=== PATIENT | female | born 1995 | race Caucasian/White ===

== ENCOUNTER 2025-06-29 07:31 | Emergency (ER) | payer SELFPAY ==
[2025-06-29 07:35] VITALS: BP 154/98
[2025-06-29] MEDS: PERCOCET 5/325 1 TABLET PO (08:09)
[2025-06-29 08:30] LABS: HCG, Urine Qualitative Screen Negative
--- NOTE | 2025-06-29 10:35 | ED.GENMED ---
History of Present Illness
General
Chief Complaint: Fall
Time Seen by Provider: 06/29/25 08:00
History of Present Illness
History of Present Illness:
Lela is a 30-year-old female who reports falling yesterday and bruising her left wrist and then falling again today while taking her dog out for a walk and sliding down 6 steps. Currently denies any pain in her left wrist but reports extreme pain
in her 'tailbone'. Denies any head strike or loss of consciousness. No other areas of pain. No external signs of trauma.
Past History
Past History
ED Past Medical History: Other (Prolonged QT)
ED Past Surgical History: None
Social History
Tobacco: Smoker
Drug: Marijuana
Personal: Single
Phy Exam
General Physical Exam
General Presentation: well appearing and no apparent distress
General Skin: warm and dry
General Habitus: normal
General Mental: alert
General Hydration: appears well hydrated
ENT Exam
ENT Exam: EOMI, pharynx normal, neck supple and normocephalic
Eye Exam
Eye Exam: PERRL, cornea clear and conjunctiva normal
Cardiovascular Exam
Cardiovascular Exam: regular rate/rhythm, no edema, no murmur and normal peripheral pulses
Pulmonary Exam
Pulmonary Exam: lungs clear, no respiratory distress, no rales, no crackles, no rhonchi, no stridor, no wheezing and no cough
Gastrointestinal Exam
Gastrointestinal Exam: normal bowel sounds, non tender, soft, no organomegaly, no pulsatile mass and non distended
Neurological Exam
Neurological Exam: alert, oriented x3, no motor deficits and speech normal
Musculoskeletal Exam
Musculoskeletal Exam: full ROM, back pain (Sacral) and no edema
Skin Exam
Skin Exam: normal color, warm/dry, no rash and no petechia
Psychiatric Exam
Psychiatric Exam: normal mood/affect
Course
Orders/Labs/Results
Orders:
Orders
06/29/25 08:05
CT Pelvis W/o Iv Contrast Urgent
Comment:
Reason For Exam: sacral pain after a fall
Oxycodone/Acetaminophen [Percocet 5/325] 1 tablet PO NOW STA
06/29/25 08:13
Test Result ONCE
06/29/25 08:17
HCG, Urine Qualitative Screen Urgent
Date Specimen was Collected: 06/29/25
Time Specimen was Collected: 08:13
Vital Signs
Initial and Last Documented VS:
Initial Vital Signs
Temp Pulse Resp BP Pulse Ox
36.3 C 87 22 154/98 100
06/29/25 07:35 06/29/25 07:35 06/29/25 07:35 06/29/25 07:35 06/29/25 07:35
Last Documented Vital Signs
Temp Pulse Resp BP Pulse Ox
36.3 C 87 16 154/98 100
06/29/25 07:35 06/29/25 07:35 06/29/25 08:00 06/29/25 07:35 06/29/25 07:35
MDM/Problems Addressed
Differential Diagnosis Includes:
CT pelvis obtained to rule out any injury to her sacrum or coccyx. This was negative for acute traumatic injury. Pain is likely associated with soft tissue injury. Discussed supportive measures of ice rest and over the counter medications
including Tylenol and Motrin. Denies any bladder or bowel issues. Return precautions discussed which include any worsening of her back pain or spread, bladder or bowel dysfunction, paresthesias, or any other concerning symptoms. She was given a
dose of Percocet in the ER with improvement in her pain.
*Pulse Oximetry
SaO2: 100
Oxygen Mode of Delivery: Room air
Patient hypoxic: no
*Critical Care Note
Total Time (30-74mins, 75-104mins- exclusive of procedures): Not Applicable
ED Attending Note
-
Portions of this chart may have been created with voice recognition software.� Occasional wrong word or��sound alike� substitutions may have occurred due to the inherent limitations of voice recognition software.
Discharge Plan
Departure
Patient Disposition: Home (Routine Discharge)
Date of Disposition: 06/29/25
Time of Disposition: 10:07
Patient with high blood pressure during this ER visit?: No
Discharge Problem:
Fall down stairs, Sacral back pain
Instructions: Low back pain - ED (DC)
Prescriptions:
No Action
pantoprazole [Protonix] 40 mg tablet,delayed release (DR/EC)
40 mg PO DAILY 14 Days Qty: 14 0RF
ondansetron 4 mg tablet,disintegrating
4 mg PO TIDPRN PRN (Reason: nausea/vomiting) Qty: 10 0RF
tramadol 100 mg tablet
100 mg PO Q6H Qty: 10 0RF
ketorolac 10 mg tablet
10 mg PO QID PRN (Reason: pain) Qty: 20 0RF
Activity Restrictions/Additional Instructions:
Continue to use Tylenol and Motrin for pain. You can take of these medications every 6 hours. You may continue to use ice or heat for comfort. May also use [id number] lidocaine patches for pain. Return to the ER if you develop any
difficulty urinating or problems with your bowels.
Interventions
Interventions:
*General Assessment Last Done: 06/29/25 07:35
*Neglect/Abuse Screening Last Done: 06/29/25 07:35
[facility] Fall Risk Assessment Tool Last Done: 06/29/25 08:00
*Risk Screen - Suicide (C-SSRS) Last Done: 06/29/25 07:35
*Nursing Disposition Last Done: 06/29/25 10:20
ED-Musculoskeletal Assessment Last Done: 06/29/25 08:14
ED- Neurological Assessment Last Done: 06/29/25 08:14
ED-Skin Assessment Last Done: 06/29/25 08:14
Discharge Date and Time
Print Language: CYMRO
== END 2025-06-29 10:22 | disposition home or self-care (01) ==
LOC: EMR 07:31
PROVIDERS: Surgery Trauma Surgery; EMERGENCY PHYSICIAN Emergency Medicine
DX: M53.3 Sacrococcygeal disorders, not elsewhere classified (principal); S39.92XA Unspecified injury of lower back, initial encounter; W10.9XXA Fall (on) (from) unspecified stairs and steps, initial encounter; F17.200 Nicotine dependence, unspecified, uncomplicated
CPT/HCPCS: 99284; 72192; 81025